=== PATIENT | female | born 1990 | race Caucasian/White ===

== ENCOUNTER 2019-11-15 03:41 | Emergency (ER) | payer OTHER ==
[~2019-11-15] VITALS: Ht 170.2 cm; Wt 146.2 kg
[2019-11-15 03:47] VITALS: Ht 170.2 cm; Wt 146.2 kg
[2019-11-15 04:44] LABS: BASOPHIL % 0.8 % (0-2); PLATELET COUNT 381 x10^3mcL (130-400); RED CELL DISTRIBUTION WIDTH 13.2 % (11.5-14.5)
[2019-11-15 04:46] LABS: CALCIUM 8.8 mg/dL (8.5-10.1); CARBON DIOXIDE 23.6 mmol/L (21-32); CHLORIDE SERUM 101 mmol/L (98-107); CREATININE SERUM 0.9 mg/dL (0.6-1.0); GFR1 > 60 mL/min; GLUCOSE SERUM 170 mg/dL (74-106); POTASSIUM SERUM 3.8 mmol/L (3.5-5.1); SODIUM SERUM 135 mmol/L (136-145)
[2019-11-15 04:59] LABS: ALBUMIN 3.3 g/dL (3.4-5.0); ALKALINE PHOSPHATASE 96 U/L (46-116); ALT/SGPT 25 U/L (14-59); AST/SGOT 33 U/L (15-37); BILIRUBIN TOTAL 0.63 mg/dL (0.20-1.00); FREE T4 1.33 ng/dL (0.76-1.46); MAGNESIUM 1.8 mg/dL (1.8-2.4); TOTAL PROTEIN, SERUM 7.5 g/dL (6.4-8.2)
[2019-11-15 07:08] VITALS: BP 140/96
== END 2019-11-15 07:05 | disposition home or self-care (01) ==
LOC: ED 03:41
PROVIDERS: Emergency Medicine
DX: I47.1 Supraventricular tachycardia (principal); F41.9 Anxiety disorder, unspecified
CPT/HCPCS: 84439; J0153; J7030; Q0092